=== PATIENT | male | born 1965 | race Caucasian/White ===

== ENCOUNTER 2017-03-29 11:31 | Day surgery (SDC) | payer OTHER ==
[~2017-03-29] VITALS: Ht 162.6 cm; Wt 69.9 kg
[2017-03-30] MEDS ORDERED: ULTRACET PO (15:32)
[2017-03-30] MEDS ORDERED: CIPRO500 MG PO (15:33)
[2017-04-05] MEDS ORDERED: COZAAR50 MG PO (13:24)
== END 2017-03-30 | disposition home or self-care (01) ==
LOC: ER 11:31 → CIR.AMB 03-30 10:04
DX: N13.2 Hydronephrosis with renal and ureteral calculous obstruction (principal); R10.32 Left lower quadrant pain

== ENCOUNTER 2017-04-11 06:20 | Day surgery (SDC) | payer OTHER ==
[~2017-04-11 06:20] MED LIST: CIPRO500 MG PO; COZAAR50 MG PO; ULTRACET PO
[2017-04-11] MEDS ORDERED: ULTRACET PO (11:18)
[2017-04-11] MEDS ORDERED: CIPRO500 MG PO (11:19)
== END 2017-04-11 16:10 | disposition home or self-care (01) ==
LOC: CIR.AMB 06:20
DX: N20.1 Calculus of ureter (principal)